=== PATIENT | female | born 1950 | race Caucasian/White ===

== ENCOUNTER → 2020-10-29 | Outpatient (CLI) | payer BC, MEDICARE ==
[~2020-10-29] MED LIST: ACYC200O PO; ASPI81TA45 PO; B CO1TAB14 PO; CALC1CAP8 PO; CHOL10003 PO; ESCI10TA10 PO; ESTR1TAB17 PO; FISH1CAP PO; Iron PO; LEVO100T PO; METH-639 PO; MULT-717 PO; OMEP10CA5 PO; OXYC-302 PO; ROSU20TA2 PO; UBID100C41 PO; [UNRECOGNIZED DRUG - CODE] PO; turmeric PO
== END | disposition home or self-care (01) ==
LOC: STAR 08:49
PROVIDERS: ATTEND Otolaryngology
DX: Z01.818 Encounter for other preprocedural examination (principal); J32.0 Chronic maxillary sinusitis; J32.1 Chronic frontal sinusitis; J32.2 Chronic ethmoidal sinusitis; K04.6 Periapical abscess with sinus; Z20.822 Contact with and (suspected) exposure to COVID-19
CPT/HCPCS: 93005; U0003

== ENCOUNTER 2020-11-04 05:27 | Day surgery (SDC) | payer MEDICARE ==
[~2020-11-04] VITALS: Ht 162.6 cm; Wt 66.0 kg
[2020-11-04 06:06] VITALS: BP 118/77
[2020-11-04] MEDS ORDERED: LACTATED RINGERS 1,000 ML IV SCH (06:30)
[2020-11-04] MEDS ORDERED: CHLORHEXIDINE 15 ML UDC MM ONE (06:30)
[2020-11-04] MEDS ORDERED: FLUORESCEIN SODIUM 500 MG/5 ML ONE (06:36)
[2020-11-04] MEDS ORDERED: EPINEPHRINE TOPICAL SOLN 1 MG/ML, 30ML ONE (06:36)
[2020-11-04] MEDS ORDERED: BACITRACIN OINT 500U/GM, 15 GM ONE (06:36)
[2020-11-04] MEDS ORDERED: LIDOCAINE/PF 1%, 30ML ONE (06:37)
[2020-11-04] MEDS ORDERED: BACITRACIN 50,000 UNIT ONE (06:37)
[2020-11-04] MEDS ORDERED: OXYMETAZOLINE NASAL SPRAY 0.05%,30ML ONE (06:37)
[2020-11-04] MEDS ORDERED: EPINEPHRINE 1 MG/ML, 1ML ONE (06:42)
[2020-11-04] MEDS ORDERED: ROCURONIUM 10MG/ML,5ML ONE (06:47)
[2020-11-04] MEDS ORDERED: GLYCOPYRROLATE 0.2MG/1ML, 5ML ONE (06:47)
[2020-11-04] MEDS ORDERED: ONDANSETRON 2MG/ML, 2ML ONE ×2 (06:47→10:52)
[2020-11-04] MEDS ORDERED: PROPOFOL 10 MG/ML, 20ML ONE (06:47)
[2020-11-04] MEDS ORDERED: NEOSTIGMINE 1 MG/ML, 10ML ONE (06:47)
[2020-11-04] MEDS ORDERED: MIDAZOLAM 1 MG/ML, 2ML ONE (06:47)
[2020-11-04] MEDS ORDERED: CEFAZOLIN 1,000 MG ONE (06:47)
[2020-11-04] MEDS ORDERED: DEXAMETHASONE 4 MG/ML, 1ML ONE (06:47)
[2020-11-04] MEDS ORDERED: SUCCINYLCHOLINE 20 MG/ML, 10ML ONE (06:47)
[2020-11-04] MEDS ORDERED: FENTANYL PF 100 MCG/2ML ONE (06:47)
[2020-11-04] MEDS ORDERED: OXYcodone 5 MG/5 ML ORAL.SOL UDC PO PRN (07:30)
[2020-11-04] MEDS ORDERED: PROMETHAZINE 25 MG/ML, 1ML IVPush PRN (07:30)
[2020-11-04] MEDS ORDERED: ONDANSETRON 2MG/ML, 2ML IVPush PRN (07:30)
[2020-11-04] MEDS ORDERED: FENTANYL PF 100 MCG/2ML IV PRN (07:30)
[2020-11-04] MEDS ORDERED: MEPERIDINE/PF 25MG/0.5ML IVPush PRN (07:30)
[2020-11-04] MEDS ORDERED: HYDROmorphone 1 MG/ML, 1ML INJ IVPush PRN (07:30)
[2020-11-04] MEDS ORDERED: LIDOCAINE 1%-EPI 1:100K, 20ML INFIL ONE (08:19)
== END 2020-11-04 12:45 | disposition home or self-care (01) ==
LOC: OUT 05:27
PROVIDERS: ATTEND Otolaryngology
DX: J32.0 Chronic maxillary sinusitis (principal); J32.1 Chronic frontal sinusitis; J32.2 Chronic ethmoidal sinusitis; J34.89 Other specified disorders of nose and nasal sinuses; I25.10 Atherosclerotic heart disease of native coronary artery without angina pectoris; G47.33 Obstructive sleep apnea (adult) (pediatric); E03.9 Hypothyroidism, unspecified; F32.9 Major depressive disorder, single episode, unspecified; K04.6 Periapical abscess with sinus; Z79.890 Hormone replacement therapy; Z79.899 Other long term (current) drug therapy; Z88.0 Allergy status to penicillin; Z88.5 Allergy status to narcotic agent; Z91.040 Latex allergy status; Z80.9 Family history of malignant neoplasm, unspecified
CPT/HCPCS: 31253; 31257; 31267; 87070; 87075; 87077; 87186; 87205; 88304; C9122; J0171; J0330; J0690; J1100; J2250; J2405; J2704; J2710; J3010; J7120

== ENCOUNTER 2020-11-18 12:03 | Day surgery (SDC) | payer MEDICARE, BC ==
[~2020-11-18] VITALS: Ht 162.6 cm; Wt 68.2 kg
[2020-11-18] MEDS ORDERED: OXYMETAZOLINE NASAL SPRAY 0.05%,30ML ONE (12:26)
[2020-11-18 12:50] VITALS: BP 111/74
== END 2020-11-18 13:45 | disposition home or self-care (01) ==
LOC: OUT 12:03
PROVIDERS: ATTEND Otolaryngology
DX: J32.0 Chronic maxillary sinusitis (principal); J32.2 Chronic ethmoidal sinusitis; J32.1 Chronic frontal sinusitis; Z20.822 Contact with and (suspected) exposure to COVID-19; Z79.899 Other long term (current) drug therapy; Z88.0 Allergy status to penicillin
CPT/HCPCS: 87635

== ENCOUNTER 2020-11-21 10:08 | Emergency (ER) | payer MEDICARE, BC ==
[~2020-11-21] VITALS: Ht 162.6 cm; Wt 67.9 kg
--- NOTE | 2020-11-21 10:11 | NUR ---
1FT CALL PT IN THE RESTROOM
[2020-11-21 11:02] LABS: ANION GAP 5 mmol/L (5-15); CALCIUM 9.1 mg/dL (8.5-10.1); CHLORIDE 98 mmol/L (98-107); CREATININE 0.53 mg/dL (0.55-1.02)
[2020-11-21 11:15] LABS: BASOPHILS % (AUTO) 0 % (0-1); EOSINOPHILS % (AUTO) 1 % (1-7); LYMPHOCYTES % (AUTO) 26 % (22-44); MEAN CORPUSCULAR HEMOGLOBIN 30.8 pg (27.0-34.8); MEAN PLATELET VOLUME 7.4 fL (7.4-10.4); MONOCYTES % (AUTO) 8 % (2-9); NEUTROPHILS % (AUTO) 64 % (42-75); PLATELET COUNT 363 x10^3/uL (130-400); RED BLOOD COUNT 3.91 x10^6/uL (3.82-5.3)
[2020-11-21 11:22] LABS: MD NO
[2020-11-21] MEDS ORDERED: SODIUM CHLORIDE FLUSH 10ML SYR IVF ONE (11:30)
--- NOTE | 2020-11-21 11:49 | NUR ---
OFF FLOOR TO MRI
--- NOTE | 2020-11-21 12:05 | NUR ---
PT BACK FROM MRI.
[2020-11-21 12:09] VITALS: BP 129/76
[2020-11-21] MEDS ORDERED: GADOTERATE 7.5 MMOL/15ML SYR ONE (12:10)
--- NOTE | 2020-11-21 12:10 | NUR ---
BREAK RN: PT RTD FROM MRI, VSS NOTED. REST RESULTS PENDING, PT AWARE. CALL LIGHT W/I REACH
--- NOTE | 2020-11-21 12:37 | NUR ---
DR GOLDEN AT BEDSIDE. D/C POC DISCUSSED AND QUESTIONS ANSWERED.
--- NOTE | 2020-11-21 12:47 | NUR ---
BREAK RN:Patient/Caregiver given discharge instructions and they have confirmed that they understand the instructions. Patient ambulatory with steady gait.
== END 2020-11-21 12:48 | disposition home or self-care (01) ==
LOC: ED 12:05
DX: J32.0 Chronic maxillary sinusitis (principal); B96.89 Other specified bacterial agents as the cause of diseases classified elsewhere; I10 Essential (primary) hypertension; K21.9 Gastro-esophageal reflux disease without esophagitis; E78.00 Pure hypercholesterolemia, unspecified; E03.9 Hypothyroidism, unspecified
CPT/HCPCS: 36415; 70553; 80048; 85025; 99284; A9575

== ENCOUNTER → 2021-01-08 | Outpatient (CLI) | payer MEDICARE, BC | END | disposition home or self-care (01) | LOC: STAR 14:07 | PROVIDERS: ATTEND Otolaryngology | DX: Z01.818 Encounter for other preprocedural examination (principal); J32.0 Chronic maxillary sinusitis; J32.1 Chronic frontal sinusitis; J32.2 Chronic ethmoidal sinusitis; K04.6 Periapical abscess with sinus; Z20.822 Contact with and (suspected) exposure to COVID-19 | CPT/HCPCS: 93005; U0003; U0005 ==

== ENCOUNTER 2021-01-13 05:51 | Day surgery (SDC) | payer MEDICARE, BC ==
[~2021-01-13] VITALS: Ht 162.6 cm; Wt 63.6 kg
[2021-01-13 06:39] VITALS: BP 105/69
[2021-01-13] MEDS ORDERED: LACTATED RINGERS 1,000 ML IV SCH (07:00)
[2021-01-13] MEDS ORDERED: CHLORHEXIDINE 15 ML UDC PO ONE (07:00)
[2021-01-13] MEDS ORDERED: BACITRACIN OINT 500U/GM, 15 GM ONE (07:08)
[2021-01-13] MEDS ORDERED: BACITRACIN 50,000 UNIT ONE (07:08)
[2021-01-13] MEDS ORDERED: EPINEPHRINE 1 MG/ML, 1ML ONE (07:08)
[2021-01-13] MEDS ORDERED: OXYMETAZOLINE NASAL SPRAY 0.05%,30ML ONE (07:08)
[2021-01-13] MEDS ORDERED: LIDOCAINE/PF 1%, 30ML ONE (07:08)
[2021-01-13] MEDS ORDERED: FLUORESCEIN SODIUM 500 MG/5 ML ONE (07:08)
[2021-01-13] MEDS ORDERED: EPINEPHRINE TOPICAL SOLN 1 MG/ML, 30ML ONE (07:08)
[2021-01-13] MEDS ORDERED: MIDAZOLAM 1 MG/ML, 2ML ONE (07:19)
[2021-01-13] MEDS ORDERED: FENTANYL PF 100 MCG/2ML ONE (07:19)
[2021-01-13] MEDS ORDERED: HYDROmorphone 1 MG/ML, 1ML INJ ONE (07:19)
[2021-01-13] MEDS ORDERED: ONDANSETRON 2MG/ML, 2ML ONE (07:41)
[2021-01-13] MEDS ORDERED: PROPOFOL 10 MG/ML, 20ML ONE (07:41)
[2021-01-13] MEDS ORDERED: CEFAZOLIN 1,000 MG ONE (07:41)
[2021-01-13] MEDS ORDERED: DEXAMETHASONE 4 MG/ML, 1ML ONE (07:41)
[2021-01-13] MEDS ORDERED: ROCURONIUM 10 MG/ML,10ML ONE (07:41)
[2021-01-13] MEDS ORDERED: PHENYLEPHRINE 10 MG/ML ONE (07:41)
[2021-01-13] MEDS ORDERED: PROPOFOL 10 MG/ML, 50ML ONE (07:41)
[2021-01-13] MEDS ORDERED: NEOSTIGMINE 1 MG/ML, 10ML ONE (07:41)
[2021-01-13] MEDS ORDERED: GLYCOPYRROLATE 0.2MG/1ML, 5ML ONE (07:41)
[2021-01-13] MEDS ORDERED: KETOROLAC 30 MG/1 ML IV PRN (08:30)
[2021-01-13] MEDS ORDERED: OXYcodone 5 MG/5 ML ORAL.SOL UDC PO PRN (08:30)
[2021-01-13] MEDS ORDERED: HALOPERIDOL 5 MG/ML IV PRN (08:30)
[2021-01-13] MEDS ORDERED: DIPHENHYDRAMINE 50 MG/ML, 1ML IVPush PRN (08:30)
[2021-01-13] MEDS ORDERED: METOPROLOL 1 MG/ML, 5ML IV PRN (08:30)
[2021-01-13] MEDS ORDERED: PROMETHAZINE 25 MG/ML, 1ML IVPush PRN (08:30)
[2021-01-13] MEDS ORDERED: METOCLOPRAMIDE 5 MG/ML, 2ML IVPush PRN (08:30)
[2021-01-13] MEDS ORDERED: FENTANYL PF 100 MCG/2ML IV PRN (08:30)
[2021-01-13] MEDS ORDERED: LABETALOL 5MG/ML, 20ML IV PRN (08:30)
[2021-01-13] MEDS ORDERED: hydrALAzine 20 MG/ML, 1ML IV PRN (08:30)
[2021-01-13] MEDS ORDERED: ACETAMINOPHEN 325 MG TABLET PO PRN (08:30)
[2021-01-13] MEDS ORDERED: ONDANSETRON 2MG/ML, 2ML IVPush PRN (08:30)
[2021-01-13] MEDS ORDERED: DIAZEPAM 5 MG/ML, 2ML IVPush PRN (08:30)
[2021-01-13] MEDS ORDERED: HYDROmorphone 1 MG/ML, 1ML INJ IVPush PRN (08:30)
[2021-01-13] MEDS ORDERED: EPHEDRINE 50 MG/ML, 1ML IVPush PRN (08:30)
[2021-01-13] MEDS ORDERED: OXYcodone 5 MG/5 ML ORAL.SOL UDC ONE (10:04)
== END 2021-01-13 11:55 | disposition home or self-care (01) ==
LOC: OUT 05:51
PROVIDERS: ATTEND Otolaryngology
DX: J32.0 Chronic maxillary sinusitis (principal); J32.1 Chronic frontal sinusitis; J32.2 Chronic ethmoidal sinusitis; K04.6 Periapical abscess with sinus; E03.9 Hypothyroidism, unspecified; I25.10 Atherosclerotic heart disease of native coronary artery without angina pectoris; K21.9 Gastro-esophageal reflux disease without esophagitis; F32.9 Major depressive disorder, single episode, unspecified; G43.909 Migraine, unspecified, not intractable, without status migrainosus; F17.210 Nicotine dependence, cigarettes, uncomplicated; Z88.0 Allergy status to penicillin; Z88.8 Allergy status to other drugs, medicaments and biological substances; Z91.011 Allergy to milk products; Z79.899 Other long term (current) drug therapy; Z98.890 Other specified postprocedural states; Z72.89 Other problems related to lifestyle
CPT/HCPCS: 31253; 31256; 88304; J0171; J1170; J2250; J3010; J7120; J7402; J0690; J1100; J2405; J2704; J2710; J2370

== ENCOUNTER 2021-01-20 08:46 | Day surgery (SDC) | payer MEDICARE, BC ==
[~2021-01-20] VITALS: Ht 162.6 cm; Wt 68.2 kg
[2021-01-20] MEDS ORDERED: OXYMETAZOLINE NASAL SPRAY 0.05%, 15ML NAS ONE (09:46)
[2021-01-20 10:07] VITALS: BP 112/70
[2021-01-20] MEDS ORDERED: OXYMETAZOLINE NASAL SPRAY 0.05%,30ML ONE (10:48)
== END 2021-01-20 10:11 | disposition home or self-care (01) ==
LOC: OUT 08:46
PROVIDERS: ATTEND Otolaryngology
DX: J32.1 Chronic frontal sinusitis (principal); J32.0 Chronic maxillary sinusitis; J32.2 Chronic ethmoidal sinusitis; K04.6 Periapical abscess with sinus; Z20.822 Contact with and (suspected) exposure to COVID-19; Z79.899 Other long term (current) drug therapy; Z88.0 Allergy status to penicillin; Z88.8 Allergy status to other drugs, medicaments and biological substances; Z91.011 Allergy to milk products
CPT/HCPCS: 87635